=== PATIENT | male | born 1955 | race Caucasian/White ===

== ENCOUNTER 2018-03-15 14:46 | Observation (INO) | payer OTHER ==
[~2018-03-15] VITALS: Ht 180.3 cm; Wt 105.2 kg
[2018-03-15 14:51] VITALS: Ht 180.3 cm; Wt 105.2 kg
--- NOTE | 2018-03-15 14:55 | NUR ---
PT CAME TO ED CO CHEST PRESSURE. PT STS THE PRESSURE STARTED ABOUT 2-3 DAYS AGO. PT STS THAT THE PAIN AND PRESSURE COME AND GO. PT STS THE PAIN RADIATES TO THE EPIGASTRIC AREA, SHOULDER AND THE LEFT ARM. PT STS HIS BLOOD PRESSURE HAS BEEN REALLY HIGH. PT STS TODAY HE WAS FEELING ANXIETY, SOB, PAIN AND PRESSURE IN HIS CHEST THAT WHAT BROUGHT HIM IN. UPON ASSESSMENT PT IS A/O X4. NO S/S OF DISTRESS. RESP E/U. COLOR AND TEMP W/IN NORMAL RANGE. AWAITING MSE. CALL LIGHT W/IN REACH. EMT AT BEDSIDE FOR EKG. WILL CONTINUE TO MONITOR.
--- NOTE | 2018-03-15 15:12 | NUR ---
LAB AT BEDSIDE FOR DRAW
--- NOTE | 2018-03-15 15:15 | NUR ---
XRAY AT BEDSIDE.
[2018-03-15 15:39] LABS: BASOPHIL % 0.5 % (0-2); PLATELET COUNT 276 x10^3mcL (130-400)
[2018-03-15] MEDS ORDERED: FENOFIBRATE160 M1 PO (15:42)
[2018-03-15] MEDS ORDERED: ATORVASTATIN CA20 M1 PO (15:42)
[2018-03-15] MEDS ORDERED: LISINOPRIL10 MG PO (15:43)
[2018-03-15] MEDS ORDERED: GOOD SENSE ASPI81 M3 PO (15:43)
[2018-03-15] MEDS ORDERED: METOPROLOL SUCC25 M2 PO (15:43)
[2018-03-15 16:36] LABS: CALCIUM 8.8 mg/dL (8.5-10.1); CARBON DIOXIDE 25.3 mmol/L (21-32); CHLORIDE SERUM 107 mmol/L (98-107); CREATININE SERUM 1.1 mg/dL (0.7-1.3); GFR1 > 60 mL/min; GLUCOSE SERUM 117 mg/dL (74-106); POTASSIUM SERUM 3.7 mmol/L (3.5-5.1); SODIUM SERUM 145 mmol/L (136-145)
[2018-03-15 16:40] LABS: ALBUMIN 3.8 g/dL (3.4-5.0); ALKALINE PHOSPHATASE 58 U/L (46-116); ALT/SGPT 21 U/L (16-63); AST/SGOT 21 U/L (15-37); BILIRUBIN TOTAL 0.95 mg/dL (0.20-1.00); HDL CHOLESTEROL 36 mg/dL (40-60); TOTAL PROTEIN, SERUM 7.6 g/dL (6.4-8.2); TRIGLYCERIDES 136 mg/dL (<150)
[2018-03-15 16:41] LABS: CHOLESTEROL 128 mg/dL (<200); CHOLESTEROL/HDL RATIO 3.6
--- NOTE | 2018-03-15 17:03 | NUR ---
PATIENT AMBULATED TO RESTROOM
--- NOTE | 2018-03-15 18:29 | NUR ---
PT RESTING AT BEDSIDE IN NAD
--- NOTE | 2018-03-15 18:45 | NUR ---
REPORT OFF TO LEVAR SHAFFER
[2018-03-15 19:43] VITALS: BP 152/83
--- NOTE | 2018-03-15 19:52 | NUR ---
RECEIVED PT FROM ER. PT ADMIT FOR CHEST PAIN, PT IS A/O X4, VERBAL RESPONSIVE, ABLE TO TELL WHAT HE NEEDS. LUNG SOUND CLEAR BILATRAL, NO COUGH, NO SOB, PT IS ON TELE 20, NSR, DENY ANY CHEST PAIN AT THIS MOMENT. BOWEL SOUND PRESENT ALL 4 QUADRANTS, NO DISTENTION, NO TENDER. PEDAL PULSE PRESENT BOTH FEET, NO EDEMA, IV AT LEFT AC, NO LEAKING, NO INFILTRATION. ALL ADLS ASSIST, ALL NEED MET, CALL LIGHT IN REACH, WILL CONTINUE TO MONITOR.
--- NOTE | 2018-03-15 19:52 | NUR ---
PT STATED HE USES CPAP AT NIGHT. ALSO STATED NEEDS MEDICATION TO HELP HIM SLEEP TONIGHT, STATED HE TAKES XANAX AT HOME. LAB CALLED, STATED 1ST TROPONIN WAS DONE AT 1300H, BUT NEXT DRAW WAS ORDERED FOR 185H, SOUGHT CLARIFICATION. PAGED DR. REYNOSO, WHO CALLED BACK. INFORMED. DR. REYNOSO ORDERED RT PROTOCOL FOR CPAP, XANAX 1MG PO QHS NEEDED FOR INSOMNIA, ALSO ORDERED TO CHANGE TROPONIN DRAWS TO 2300H AND 0700H. DR. REYNOSO ALSO ORDERED CONTINUE HOME MEDICATIONS FOLLOWS: METOPROLOL SUCCINATE 25MG PO BID, LISINOPRIL 10MG PO DAILY, FENOFIBRATE 160MG PO DAILY, ATORVASTATIN 20 MG PO DAILY. ORDERS READ BACK.
[2018-03-15 22:00] VITALS: BP 142/78
[2018-03-15 22:09] VITALS: BP 142/78
--- NOTE | 2018-03-15 22:10 | NUR ---
RESP THERAPIST IN ROOM SETTING UP CPAP. SINUS RHYTHM ON TELE, HR 75/MIN. NO PVCS NOTED. DENIES HAVING CHEST PAIN OR CHEST DISCOMFORT.
--- NOTE | 2018-03-15 22:11 | NUR ---
LATE ENTRY:2100H - PT ASKED IF HE WAS GETTING A BLOOD THINNER. EXPLAINED TO PT PHYSICIAN ORDERED HEPARIN SQ. EXPLAINED PURPOSE OF HEPARIN, POSSIBLE SIDE EFFECTS AND ADVERSE REACTIONS. EXPLAINED NEED TO INFORM NURSE OR PHYSICIAN IMMEDIATELY IF NOTICING ANY BLEEDING SUCH IN URINE AND GUMS. VERBALIZED UNDERSTANDING.
--- NOTE | 2018-03-15 23:42 | NUR ---
eyes closed, breathing unlabored and even on cpap, pressure of 14. sinus rhythm on tele, hr 70/min. no pvcs noted. call light within easy reach.
[2018-03-16 05:50] VITALS: BP 112/68
--- NOTE | 2018-03-16 07:04 | NUR ---
awake and alert, denies having pain. watching tv. breathing even and unlabored on room air. call light within easy reach. endorsed to nurse osvaldo
[2018-03-16 07:18] LABS: CALCIUM 9.1 mg/dL (8.5-10.1); CARBON DIOXIDE 28.5 mmol/L (21-32); CHLORIDE SERUM 107 mmol/L (98-107); CREATININE SERUM 1.2 mg/dL (0.7-1.3); GFR1 > 60 mL/min; GLUCOSE SERUM 107 mg/dL (74-106); POTASSIUM SERUM 3.8 mmol/L (3.5-5.1); SODIUM SERUM 144 mmol/L (136-145)
[2018-03-16 07:50] LABS: BASOPHIL % 0.9 % (0-2); PLATELET COUNT 246 x10^3mcL (130-400); RED CELL DISTRIBUTION WIDTH 14.6 % (11.5-14.5)
[2018-03-16 09:00] VITALS: BP 119/62
--- NOTE | 2018-03-16 09:00 | NUR ---
PT ON BED, AWAKE, ALERT, AND ORIENTED. HAS NO COMPLAINT OF PAIN, SOB, OR DIZZINESS. RESPONDS WELL TO QUESTION AND ANSWER. CLEAR ANDREY LUNG FIELD, SYMMETRICAL CHEST EXPANSION AND UNLABORED. ACTIVE BOWEL SOUNDS NOTED. NON DISTENDED ABDOMEN. SKIN INTACT. SIDE RAILS UP, CALL LIGHT WITHIN REACH, WILL CONTINUE TO MONITOR.
[2018-03-16 12:00] VITALS: BP 124/78
[2018-03-16 15:10] VITALS: BP 124/78
== END 2018-03-16 16:37 | disposition home or self-care (01) | DRG 243 ==
LOC: ED 14:46 → DU 18:30
PROVIDERS: Emergency Medicine; Internal Medicine Nephrology; ADMIT Internal Medicine Pulmonary Disease
DX: K21.9 Gastro-esophageal reflux disease without esophagitis (principal); E78.00 Pure hypercholesterolemia, unspecified; I10 Essential (primary) hypertension; E78.5 Hyperlipidemia, unspecified; I25.10 Atherosclerotic heart disease of native coronary artery without angina pectoris; I25.2 Old myocardial infarction; Z79.82 Long term (current) use of aspirin; Z68.34 Body mass index [BMI] 34.0-34.9, adult; Z95.1 Presence of aortocoronary bypass graft
CPT/HCPCS: G0378; J1644; Q0092